=== PATIENT | female | born 1945 | race Caucasian/White ===

== ENCOUNTER 2020-03-15 00:24 | Outpatient (CLI) | payer MEDICARE, SELFPAY ==
--- NOTE | 2020-03-15 | DI.CT_ITS ---
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 Visualized lung apices are clear. Visualized aortic arch and major branch vessels appear intact. No supraclavicular or superior mediastinal adenopathy or mass. No significant cervical adenopathy. No cervical mass. Tracheolaryngeal structures appear intact. Parotid glands appear normal and symmetrical. There is an apparent absent or atrophic right submandi bular gland. Left submandibular gland unremarkable in appearance. The prevertebral soft tissues appear intact. Visualized paranasal sinuses and orbits are unremarkable in appearance. Mastoid air cells are clear. No specific intracranial abnormality seen as visualized. IMPRESSION: Negative cervical CT, no mass or adenopathy identified. RADIATION DOSE DELIVERED: 364.96mGy.cm Total DLP
[2020-03-15 13:34] LABS: CREATININE 0.89 mg/dL (0.55-1.02)
[2020-03-15] MEDS: Omnipaque 350 MG/ML 100 ML BTL IJ ×2 (14:05→14:06)
[2020-03-15] MEDS: Normal Saline - Diluent 50 ML VIAL IV ×2 (14:06→14:07)
[2020-03-15] MEDS: Normal Saline Flush 10 ML SYR IVP (14:07)
== END 2020-03-15 00:44 ==
PROVIDERS: PCP Nurse Practitioner Family; Visit Provider Otolaryngology
DX: J38.01 Paralysis of vocal cords and larynx, unilateral
CPT/HCPCS: 70491; 82565; J3490